=== PATIENT | female | born 1995 | race Caucasian/White ===

== ENCOUNTER 2017-05-29 21:29 | Emergency (ER) | payer OTHER ==
[~2017-05-29] VITALS: Ht 165.1 cm; Wt 69.0 kg
[2017-05-29 21:36] VITALS: BP 117/78; PULSE 67; TEMP 37; O2SAT 99; Ht 165.1 cm; Wt 69.0 kg
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
== END 2017-05-29 22:00 | disposition home or self-care (01) ==
LOC: C.EDB 21:31 → C.EDD 22:00
DX: M79.605 Pain in left leg (principal); M79.602 Pain in left arm; V03.00XA Pedestrian on foot injured in collision with car, pick-up truck or van in nontraffic accident, initial encounter; Y92.481 Parking lot as the place of occurrence of the external cause; Y99.0 Civilian activity done for income or pay

== ENCOUNTER → 2017-10-16 | Outpatient (CLI) | payer OTHER ==
[~2017-10-16] MED LIST: ACET-1311 PO; ETON1IMP2; IBUP-1449 PO
[2017-10-16 09:39] LABS: INR 1.1 (0.9-1.1); PTT PATIENT 24.8 SECONDS (21.0-31.0)
[2017-10-16 09:45] LABS: POTASSIUM 3.9 mmol/L (3.5-5.1)
[2017-10-16 09:53] LABS: BASO % 0.4 %; BASO ABS # 0.02 K/uL (0-0.2); EOS % 2.6 %; EOS ABS # 0.12 K/uL (0-0.5); HEMATOCRIT 39.2 % (37-47); HEMOGLOBIN 13.5 g/dL (12.0-16.0); LYMPH % 29.5 %; LYMPH ABS # 1.37 K/uL (1.2-3.4); MEAN CELL VOLUME 89.7 fL (80-100); MEAN CORPUSCULAR HEMOGLOBIN 30.9 pg (25-34); MEAN CORPUSCULAR HGB CONC 34.4 g/dl (32-36); MEAN PLATELET VOLUME 9.9 fL (7.4-10.4); MONO % 9.7 %; MONO ABS # 0.45 K/uL (0.11-0.59); NEUT % 57.8 %; NEUT ABS # 2.68 K/uL (1.4-6.5); PLATELET COUNT 288 K/uL (130-400); RED CELL DISTRIBUTION WIDTH CV 12.9 % (11.5-14.5); RED CELL DISTRIBUTION WIDTH SD 42.4 fL (36.4-46.3); WHITE BLOOD COUNT 4.64 K/uL (4.8-10.8)
== END | disposition home or self-care (01) ==
LOC: C.LAB1850 08:32
DX: Z01.812 Encounter for preprocedural laboratory examination (principal)

== ENCOUNTER → 2017-10-23 | Day surgery (SDC) | payer OTHER ==
[2017-10-13 09:07] VITALS: Ht 165.1 cm; Wt 65.0 kg
[~2017-10-23] VITALS: Ht 165.1 cm; Wt 65.0 kg
[~2017-10-23] MED LIST changes: +ACETAMINOPHEN/HYDROCODONE ELIX 15 ML/CUP UDP PO PRN; +ATROPINE SULFATE 0.1 MG/ML 5ML SYR IV PRN; +BACITRACIN/POLYMYXIN B OINT 90 APPLN/28.4 GM TUBE EXT ONE; +DEXAMETHASONE SOD INJ 4 MG/ML VIAL ONE; +EpHEDrine SULFATE INJ 50 MG/ML AMP IV PRN; +FENTANYL CITRATE INJ 50 MCG/1 ML 2 ML VIAL IV PRN; +FENTANYL CITRATE INJ 50 MCG/1 ML 2 ML VIAL ONE; +LACTATED RINGER'S 1000ML 1,000 ML IV SCH; +LIDOCAINE 2% JELLY 5 ML TUBE ONE; +LIDOCAINE HCL 2% 2 ML VIAL (20MG/ML) ONE; +MIDAZOLAM HCL 1 MG/ML 2ML VIAL ONE; +ONDANSETRON INJ 2 MG/ML 2 ML VIAL IV PRN; +ONDANSETRON INJ 2 MG/ML 2 ML VIAL ONE; +OXYMETAZOLINE HCL 0.05% NA SPR 15 ML BTL ONE; +PROPOFOL IV EMULSION 10 MG/ML 20 ML VIAL ONE; +ROCURONIUM BROMIDE 10 MG/ML 5 ML VIAL ONE; +SCOPOLAMINE 1.5 MG TDSY TD ONE; +SUCCINYLCHOLINE CHLORIDE 20 MG/ML 10 ML VIAL IV ONE
--- NOTE | 2017-10-23 08:12 | History & Physical Bridge - [place] ---
H&P Re-Evaluation Bridge Note: I have examined the patient, reviewed the History & Physical and in the interval since the performance of the History & Physical I have noted the following changes of clinical significance: No changes noted
--- NOTE | 2017-10-23 09:23 | [facility] Operative Report ---
Operative Report Operative Date Oct 23, 2017. 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 Any exceptions are noted below.
--- NOTE | 2017-10-23 09:25 | Discharge Instructions ---
Discharge Instructions Date of Service Oct 23, 2017. Admission Reason for Admission: Recurrent Acute Tonsillitis Discharge Discharge Diagnosis / Problem: SAME Discharge Goals Goal(s): Therapeutic intervention Activity Recommendations Activity Limitations: as noted below LIGHT ACTIVITY FOR 2WEEKS; NO DRIVING WHILE ON HYDROCODONE . Current Hospital Diet Patient's current hospital diet: Full Liquid Diet Discharge Diet Recommended Diet: Full Liquid Diet Procedures Procedures Performed: Tonsillectomy With Adenoidectomy Pending Studies Studies pending at discharge: no Medical Emergencies . Who to Call and When: Medical Emergencies: If at any time you feel your situation is an emergency, please call 911 immediately. . Non-Emergent Contact Non-Emergency issues call your: Surgeon . . "Provider Documentation" section prepared by Robi Hook. .
--- NOTE | 2017-10-23 10:21 | OPERATIVE REPORT ---
DATE OF OPERATION: 10/23/2017 PREOPERATIVE DIAGNOSES: 1. Recurrent acute tonsillitis. 2. Tonsillar hypertrophy. POSTOPERATIVE DIAGNOSES: 1. Recurrent acute tonsillitis. 2. Tonsillar hypertrophy. 3. Adenoid hypertrophy. PROCEDURES: Tonsillectomy and adenoidectomy. SURGEON: Robi Hook MD ANESTHESIA: General endotracheal. ESTIMATED BLOOD LOSS: 50 mL. FINDINGS: 1. Normal palate. 2. 4+ adenoids. 3. 4+ tonsils. SPECIMENS: None. COMPLICATIONS: None. INDICATIONS FOR THE PROCEDURE: The patient is a 21-year-old female with the above-mentioned history, who presents for the above-mentioned procedure on an outpatient elective basis. DESCRIPTION OF PROCEDURE: After informed consent had been obtained from the patient, the patient was wheeled to the operating room and placed on the operating room table in supine position. Monitors were placed. After induction of general endotracheal anesthesia, the table was turned 90 degrees and a shoulder roll was placed. The patient's head and neck were gently extended and antibiotic ointment was applied to the lips. A mouth gag was carefully inserted, opened, stabilized on a roll of towels. The palate was inspected and this was found to be normal. A catheter was then inserted into the left nasal cavity and this was used to elevate the soft palate and uvula. A laryngeal mirror was used to inspect the nasopharynx and the intraoperative findings were of 4+ adenoid tissue with complete obstruction of the choanae with adenoid tissue. Powered instrumentation and a RADenoid blade was used to perform the adenoidectomy. Afrin-soaked tonsil balls were then placed into the nasopharynx. An Allis clamp was then used to grasp the right tonsil in a superior pole. Bovie electrocautery was used to remove the tonsil in the capsular plane with care to preserve the underlying mucosa and musculature of the anterior and posterior tonsillar pillars. The left tonsil was then removed in a similar fashion. Intraoperative findings were 4+ tonsils bilaterally. The tonsil balls were then removed from the nasopharynx. Suction Bovie electrocautery was used to achieve adequate hemostasis. The nasal cavities, nasopharynx, oral cavity and oropharynx were then irrigated and suctioned. Hemostasis was confirmed. The mouth gag was released for 1 minute. This was reopened and hemostasis was confirmed. An orogastric tube was placed and the stomach was suctioned free of any stomach contents. 2% lidocaine jelly was placed in the bilateral tonsillar fossae for added anesthetic effect. This marked the end of the case. The patient tolerated the procedure well. There were no apparent complications. The patient was extubated and transferred to recovery room in stable condition. I attest to the content of the Intraoperative Record and any orders documented therein. Any exception s are noted below.
--- NOTE | 2017-10-23 11:13 | Anesthesia Progress Nt - [facility] ---
Anesthesia Post Op Note Date & Time Oct 23, 2017 at 11:13 Vital Signs Pain Intensity: 4 Vital Signs Past 12 Hours Date Time Temp Pulse Resp B/P (MAP) Pulse Ox O2 Delivery O2 Flow Rate FiO2 10/23/17 10:55 36.5 68 20 137/90 (106) 100 Room Air 10/23/17 10:47 36.6 100 Room Air 10/23/17 10:46 127/97 10/23/17 10:45 60 13 10/23/17 10:45 60 13 100 10/23/17 10:41 132/97 10/23/17 10:40 64 27 10/23/17 10:40 63 27 99 10/23/17 10:36 133/97 10/23/17 10:35 62 12 99 10/23/17 10:35 62 12 10/23/17 10:31 141/101 10/23/17 10:30 61 18 100 10/23/17 10:30 59 18 10/23/17 10:29 67 14 100 10/23/17 10:29 63 14 10/23/17 10:26 139/96 10/23/17 10:24 70 21 98 10/23/17 10:24 70 21 10/23/17 10:21 133/96 10/23/17 10:19 65 13 99 10/23/17 10:19 63 13 10/23/17 10:16 132/91 10/23/17 10:14 66 11 99 10/23/17 10:14 65 11 10/23/17 10:11 128/90 10/23/17 10:09 74 8 100 10/23/17 10:09 69 8 10/23/17 10:08 70 16 100 10/23/17 10:08 68 16 10/23/17 10:06 129/87 10/23/17 10:03 68 7 10/23/17 10:03 67 7 100 10/23/17 10:01 130/88 10/23/17 09:58 74 16 10/23/17 09:58 73 16 100 10/23/17 09:57 103/65 10/23/17 09:56 90 16 100 10/23/17 09:56 86 16 10/23/17 09:51 74 5 123/87 100 10/23/17 09:51 74 5 10/23/17 09:48 137/82 10/23/17 09:48 36.3 74 12 137/82 100 Room Air 10/23/17 07:56 36.9 80 20 120/80 (93) 100 Room Air Notes Mental Status: alert / awake / arousable, participated in evaluation Pt Amnestic to Procedure: Yes Nausea / Vomiting: adequately controlled Pain: adequately controlled Airway Patency, RR, SpO2: stable & adequate BP & HR: stable & adequate Hydration State: stable & adequate Anesthetic Complications: no major complications apparent
[2017-10-23 11:35] VITALS: BP 118/79; PULSE 99; TEMP 36.9; O2SAT 99
== END | disposition home or self-care (01) ==
LOC: X.SURG 07:38
DX: J03.91 Acute recurrent tonsillitis, unspecified (principal); J35.3 Hypertrophy of tonsils with hypertrophy of adenoids; J30.9 Allergic rhinitis, unspecified; J45.909 Unspecified asthma, uncomplicated; Z92.241 Personal history of systemic steroid therapy